=== PATIENT | female | born 1950 | race Caucasian/White ===

== ENCOUNTER → 2016-08-27 | Outpatient (CLI) | payer OTHER ==
--- NOTE | 2016-08-28 08:35 | DX ---
DEXA Bone Densitometry Technique: DEXA scan was performed on [employer] Discovery W Bone Densitometer Indication: Osteopenia Comparator Study: June 2010 Results: Lumbar Spine BMD: 0.843 T-score: -1.9 Prior BMD: 0.903 % change: -6.6% Total Hip (Right) BMD: 0.840 T-score: -0.8 Femoral Neck (Right) BMD: 0.788 T-score:_-0.5 Total Hip (Left) BMD: 0.891 T-score: -0.4 Prior BMD: 0.947 % change: -5.9% Femoral Neck (Left) BMD: 0.793 T-score: 0.5 CONCLUSION: Osteopenia In comparison to the prior study from June 2010 the patient measured BMD in the lumbar spine is d ecreased by 6.6% which is a significant change. The patient measured BMD in the total hip has decreas ed by 5.9% which is a significant change ADDITIONAL COMMENTS: By FRAX calculation the estimated 10 year probability of any major osteoporotic fracture is 7.3%. The estimated 10 year probability of hip fracture 0.4%. Mild degenerative changes are present in the lower lumbar spine. This will increase the measured bone density of the lumbar spine Consider repeating the study in 2 years NOTE: The risk of osteoporotic fractures increases approximately twofold for each 1.0 SD decrease in T-score. The T-score represents the standard deviations from a young normal, same sex, reference po pulation. Low bone density is not the only risk factor for fracture. Clinical factors to consider include fall risk, previous osteoporotic fractures, family history of fractures, smoking, and low body weight. Patients who have an unexpectedly low BMD may need to be evaluated for secondary causes of low bone m ineral density. In comparing the present study to a prior study, lack of a significant increase or decrease in BMD ma y signify efficacy of the patient's present treatment. Bone mineral density measurements performed with densitometers produced by different manufacturers ar e not comparable. For the most reproducible BMD measurement, subsequent exams should be performed on the same densitometer.
== END ==
LOC: BMCIMAGING 13:35
PROVIDERS: ATTEND Internal Medicine
DX: Z13.820 Encounter for screening for osteoporosis (principal); M85.80 Other specified disorders of bone density and structure, unspecified site

== ENCOUNTER → 2017-06-14 | Outpatient (CLI) | payer OTHER | LOC: BMCIMAGING 13:14 | PROVIDERS: ATTEND Internal Medicine | DX: Z12.31 Encounter for screening mammogram for malignant neoplasm of breast (principal) | CPT/HCPCS: G0202 ==

== ENCOUNTER 2017-07-21 10:04 | Emergency (ER) | payer OTHER ==
[2017-07-21 10:11] VITALS: RESP 16
[2017-07-21] MEDS ORDERED: IBUPROFEN 800 MG TAB PO ONE ×2 (11:06)
[2017-07-21] MEDS ORDERED: OXYCODONE/APAP 5/325 TAB PO ONE (11:09)
--- NOTE | 2017-07-21 11:11 | EDPHY ---
H & P Time Seen by Provider: 07/21/17 10:44 HPI/ROS: CHIEF COMPLAINT: Left wrist pain HISTORY OF PRESENT ILLNESS: 66-year-old female presents to the emergency department with left wrist injury. The patient was walking her dogs and slipped off the curb and fell injuring her left wrist. She also twisted her left ankle. She did not hit her head or lose consciousness. Denies headache. Denies neck or back pain. Denies chest pain or difficulty breathing. Denies abdominal pain. Pain in her left wrist especially with movement. Denies pain in the left elbow or left shoulder. She also has some mild pain in her left ankle. She has a history of frequent ankle sprains. She was able to walk back to her home. The incident happened just prior to arrival. REVIEW OF SYSTEMS: Constitutional: No fever, no chills. Eyes: No double or blurry vision. ENT: No sore throat. Respiratory: No cough, no shortness of breath. Cardiac: No chest pain. Gastrointestinal: No abdominal pain, vomiting or diarrhea. Genitourinary: No dysuria. Musculoskeletal: No neck or back pain. Skin: No rashes. Neurological: No headache. Past Medical/Surgical History: Hypothyroidism Social History: , at bedside Smoking Status: Never smoked Physical Exam: General Appearance: Alert, no distress. No visible signs of trauma to her head. She is mentating normally and answering questions appropriately. Eyes: Pupils equal and round. Extraocular motions are all intact. ENT: Mouth: Mucous membranes moist. Respiratory: No wheezing, rhonchi, or rales, lungs are clear to auscultation. Cardiovascular: Regular rate and rhythm. Gastrointestinal: Abdomen is soft and nontender, no masses, no rebound or guarding, bowel sounds normal. Neurological: Alert and oriented x 3, cranial nerves II through XII grossly intact Skin: Warm and dry, no rashes. Musculoskeletal: Nontender to palpate along the cervical, thoracic or lumbar spine. Neck is supple. Extremities: Swelling noted to the left wrist. Tenderness with palpation especially over the distal radius. Unable to supinate. Strong radial pulse at the left wrist. Full extension of the left elbow. Nontender to palpate left elbow or left shoulder. Full range of motion of her right upper extremity and her right lower extremity. She has some mild pain with palpation just distal to the lateral malleolus of the left ankle. No other palpable bony tenderness. Nontender to palpate the medial aspect of the left ankle. Psychiatric: Patient is oriented X 3, there is no agitation. Constitutional: Initial Vital Signs Temperature (C) 36.8 C 07/21/17 10:09 Heart Rate 66 07/21/17 10:09 Respiratory Rate 16 07/21/17 10:09 Blood Pressure 148/86 H 07/21/17 10:09 O2 Sat (%) 97 07/21/17 10:09 O2 Delivery Mode Room Air Allergies/Adverse Reactions: Penicillins Allergy (Verified 07/21/17 10:08) Sulfa (Sulfonamide Antibiotics) Allergy (Verified 07/21/17 10:08) Home Medications: Medication Instructions Recorded Levothyroxine 07/21/17 oxyCODONE/APAP 5/325 [Percocet 1 - 2 tab PO Q4-6PRN PRN #15 tab 07/21/17 5/325] Medical Decision Making - Diagnostics Imaging Results: Imaging Impressions Wrist X-Ray 07/21/17 10:14 Impression: Comminuted, minimally displaced distal left radial fracture which probably extends to the radial articular surface. Imaging: I viewed and interpreted images myself Procedures: Patient was placed in a volar Ortho Glass splint and examined post application in good placement with normal VENDOR SPECIALIST. ED Course/Re-evaluation: 66-year-old female with left wrist injury. X-rays reveal distal radius fracture which is nondisplaced. She was placed in a volar splint and given orthopedic follow-up. The patient also twisted her left ankle. She has no palpable bony tenderness over the lateral malleolus or distal fibula. Patient was able to ambulate. She declined x-rays of her left ankle. Patient states that she is in excruciating pain is requesting prescription for something stronger for pain other than ibuprofen. Patient was given 600 mg of ibuprofen p.o. in the emergency department as well as 1 Percocet p. o.. Patient is a [facility] patient and was given referral to [facility]. - Data Points Medications Given: Discontinued Medications Ibuprofen (Motrin) 800 mg PO EDNOW ONE Stop: 07/21/17 11:07 Last Admin: 07/21/17 11:10 Dose: 800 mg Oxycodone/Acetaminophen (Percocet 5/325) 2 tab PO EDNOW ONE Stop: 07/21/17 11:10 Last Admin: 07/21/17 11:10 Dose: 2 tab Departure - Departure Disposition: Home, Routine, Self-Care Clinical Impression: Left wrist fracture Qualifiers: Encounter type: initial encounter Fracture type: closed Qualified Code(s): S62.102A - Fracture of unspecified carpal bone, left wrist, initial encounter for closed fracture Condition: Good Instructions: Wrist Fracture in Adults (ED) Additional Instructions: Ibuprofen 600mg every 8 hours for pain as directed. Percocet for severe pain as directed. Keep splint on and keep it dry until follow up with orthopedic surgeon next week. Referrals: Fabrice Bhat MD [Medical Doctor] - 5-7 days, call for appt. (Orthopedic surgeon [facility]) Juan Ramirez MD [Medical Doctor] - 5-7 days, call for appt. (Orthopedic surgeon of [facility]) Prescriptions: oxyCODONE/APAP 5/325 [Percocet 5/325] 1 - 2 tab PO Q4-6PRN PRN #15 tab PRN Reason: For Moderate To Severe Pain
[2017-07-21 12:03] VITALS: BP 139/69; PULSE 59; TEMP 99; O2SAT 95
== END 2017-07-21 12:02 | disposition home or self-care (01) ==
DX: S52.502A Unspecified fracture of the lower end of left radius, initial encounter for closed fracture (principal); W01.0XXA Fall on same level from slipping, tripping and stumbling without subsequent striking against object, initial encounter; Y99.8 Other external cause status; Y93.K1 Activity, walking an animal
CPT/HCPCS: 73110; 99283; A4565

== ENCOUNTER → 2017-07-28 | Outpatient (CLI) | payer OTHER | LOC: BMCIMAGING 13:28 | PROVIDERS: ATTEND Orthopaedic Surgery Hand Surgery | DX: S52.502D Unspecified fracture of the lower end of left radius, subsequent encounter for closed fracture with routine healing (principal); W01.0XXD Fall on same level from slipping, tripping and stumbling without subsequent striking against object, subsequent encounter ==

== ENCOUNTER → 2017-08-04 | Outpatient (CLI) | payer OTHER | LOC: BMCLAB 12:27 | PROVIDERS: ATTEND Orthopaedic Surgery Hand Surgery | DX: S52.532D Colles' fracture of left radius, subsequent encounter for closed fracture with routine healing (principal) ==

== ENCOUNTER → 2017-08-18 | Outpatient (CLI) | payer OTHER | LOC: BMCIMAGING 12:36 | PROVIDERS: ATTEND Orthopaedic Surgery Hand Surgery | DX: S52.532D Colles' fracture of left radius, subsequent encounter for closed fracture with routine healing (principal) ==

== ENCOUNTER → 2017-09-01 | Outpatient (CLI) | payer OTHER | LOC: BMCIMAGING 13:04 | PROVIDERS: ATTEND Orthopaedic Surgery Hand Surgery | DX: S52.532D Colles' fracture of left radius, subsequent encounter for closed fracture with routine healing (principal) ==

== ENCOUNTER → 2017-09-30 | Outpatient (CLI) | payer OTHER | LOC: BMCIMAGING 12:30 | PROVIDERS: ATTEND Orthopaedic Surgery Hand Surgery | DX: S52.532D Colles' fracture of left radius, subsequent encounter for closed fracture with routine healing (principal) ==

== ENCOUNTER → 2018-06-16 | Outpatient (CLI) | payer OTHER | LOC: FIMAGING 13:44 | PROVIDERS: ATTEND Internal Medicine | DX: Z12.31 Encounter for screening mammogram for malignant neoplasm of breast (principal) ==